=== PATIENT | male | born 1995 | race Two or more races ===

== ENCOUNTER 2021-05-13 16:20 | Emergency (ER) | payer BC ==
[~2021-05-13] VITALS: Ht 167.6 cm; Wt 53.1 kg
[2021-05-13 18:10] VITALS: BP 94/53
[2021-05-13] MEDS ORDERED: CETIRIZINE HCL 10 MG TABLET PO STA (18:41)
[2021-05-13] MEDS ORDERED: FAMOTIDINE 20 MG TABLET PO ONE (18:45)
[2021-05-13] MEDS ORDERED: predniSONE 20 MG TABLET PO ONE (18:45)
[2021-05-13] MEDS ORDERED: PRED50TA PO (18:52)
[2021-05-13] MEDS ORDERED: FAMO20TA5 PO (18:52)
[2021-05-13] MEDS ORDERED: CETI10TA74 PO (18:52)
--- NOTE | 2021-05-13 18:53 | PHYS DOC ---
Past History Past Surgical History: No Surgical History (OZZY SÁNCEHZ APRN) Alcohol Use: None (OZZY SÁNCHEZ APRN) Adult General Chief Complaint Chief Complaint: SKIN RASH/ABSCESS HPI HPI Patient is a 25-year-old male patient who presents to the ED today complaining of a rash throughout his body that began 3 days ago. He states he was seen in [place] and was started on an antihistamine. He states the medicine is not working. Patient denies any fever. Denies any coughing or congestion. Denies any sore throat, denies any chest pain or shortness of breath. Denies any new soaps, laundry detergents, new foods. He states he is heading to [facility] tomorrow morning. Patient is Citizen Of [place]-speaking and interpretation is provided by family (OZZY SÁNCHEZ APRN) Review of Systems Review of Systems Constitutional: Denies fever or chills [] Musculoskeletal: Denies back pain or joint pain [] Integument: Reports rash Neurologic: Denies headache, focal weakness or sensory changes [] All other systems were reviewed and found to be within normal limits, except as documented in this note. (OZZY SÁNCHEZ APRN) Current Medications Current Medications Current Medications Medications (Trade) Dose Ordered Sig/Gunjan Start Time Stop Time Status Last Admin Dose Admin Cetirizine HCl (ZyrTEC) 10 mg 1X STAT 05/13/21 18:41 05/13/21 18:42 UNV Famotidine (Pepcid) 20 mg 1X ONCE 05/13/21 18:45 05/13/21 18:46 UNV Prednisone (Prednisone) 60 mg 1X ONCE 05/13/21 18:45 05/13/21 18:46 UNV (OZZY SÁNCHEZ APRN) Allergies Allergies Allergies Coded Allergies Type Severity Reaction Last Updated Verified No Known Drug Allergies 05/13/21 No (OZZY SÁNCHEZ APRN) Physical Exam Physical Exam Constitutional: Well developed, well nourished, no acute distress, non-toxic appearance. [] Skin: Mild amount of erythematous papular rash on patient's bilateral upper extremities, chest, back, trace amount of the same rash on the face Back: No tenderness, no CVA tenderness. [] Extremities: No tenderness, no cyanosis, no clubbing, ROM intact, no edema. [] Neurologic: Alert and oriented X 3, normal motor function, normal sensory function, no focal deficits noted. [] Psychologic: Affect normal, judgement normal, mood normal. [] (OZZY SÁNCHEZ APRN) Current Patient Data Vital Signs Vital Signs Date Time Temp Pulse Resp B/P (MAP) Pulse Ox O2 Delivery O2 Flow Rate FiO2 05/13/21 18:10 97.9 75 20 94/53 (67) 98 Room Air (OZZY SÁNCHEZ APRN) EKG EKG [] (OZZY SÁNCHEZ APRN) Radiology/Procedures Radiology/Procedures [] (OZZY SÁNCHEZ APRN) Heart Score C/O Chest Pain: N/A Risk Factors: Risk Factors: DM, Current or recent (<one month) smoker, HTN, HLP, family history of CAD, obesity. Risk Scores: Risk Factors: DM, Current or recent (<one month) smoker, HTN, HLP, family history of CAD, obesity. (OZZY SÁNCHEZ APRN) Course & Med Decision Making Course & Med Decision Making Pertinent Labs and Imaging studies reviewed. (See chart for details) This a 25-year-old male patient presenting to the ED today with a rash that began 3 days ago. Currently not antihistamine. Was given prednisone. Famotidine Intratect and discharged with the same. Follow-up with his own doctor in [place]. (OZZY SÁNCHEZ APRN) Dragon Disclaimer Dragon Disclaimer This electronic medical record was generated, in whole or in part, using a voice recognition dictation system. (OZZY SÁNCHEZ APRN) Departure Departure: Impression: Primary Impression: Contact dermatitis Disposition: HOME / SELF CARE / HOMELESS Condition: STABLE Referrals: PCP,NO (PCP) follow up in one week Patient Instructions: Contact Dermatitis, [id number] Additional Instructions: You were evaluated in the emergency room for rash. Please follow-up with your own doctor in [place] in [place] when you get there. We will send medicines for your symptoms at [facility] Cetirizine Hcl (ZYRTEC) 10 Mg Tablet 1 TAB PO DAILY, #30 TAB 2 Refills Prov: OZZY SÁNCHEZ APRN 05/13/21 Famotidine (FAMOTIDINE) 20 Mg Tablet 1 TAB PO DAILY, #7 TAB Prov: OZZY SÁNCHEZ CHRISTIAN 05/13/21 Prednisone (PREDNISONE) 50 Mg Tablet 1 TAB PO DAILY, #5 TAB Prov: OZZY SÁNCHEZ STUDIO DESIGNER 05/13/21 Attending Signature Attending Signature I have participated in the care of this patient and I have reviewed and agree with all pertinent clinical information above including history, exam, and recommendations. (JAY NERI MD) Problem Qualifiers Primary Impression: Contact dermatitis Contact dermatitis type: unspecified Contact dermatitis trigger: unspecified trigger Qualified Codes: L25.9 - Unspecified contact dermatitis, unspecified cause OZZY SÁNCHEZ CHRISTIAN May 13, 2021 18:52 JAY NERI MD May 14, 2021 18:11
== END 2021-05-13 19:07 | disposition home or self-care (01) ==
LOC: ER 16:31
DX: L25.9 Unspecified contact dermatitis, unspecified cause (principal)
CPT/HCPCS: 99284; J7512